=== PATIENT | female | born 1970 | race Caucasian/White ===

== ENCOUNTER 2021-03-20 01:44 | Emergency (ER) | payer BC, OTHER ==
[~2021-03-20] VITALS: Ht 170.2 cm; Wt 63.5 kg
--- NOTE | 2021-03-20 01:53 | NUR ---
Pt here for cat bite to L hand that happened this AM. Hand is swollen and warm to the touch. Dr. Molina at bedside for mse.
[2021-03-20] MEDS ORDERED: PIPERACILLIN SODIUM/TAZOBACTAM 3.375 G in IV DEXTROSE 5% 50 ML IV ONE (02:00)
[2021-03-20] MEDS ORDERED: TDAP DIPH,PERTUSS,TET VAC/PF 0.5 ML DISP.SYRIN IM ONE ×2 (02:15→02:23)
[2021-03-20] MEDS ORDERED: PIPERACILLIN/TAZOBACTAM/D5W 50 ML IV ONE (02:23)
[2021-03-20] MEDS ORDERED: IBUPROFEN 600 MG TABLET PO ONE (02:30)
[2021-03-20] MEDS ORDERED: OXYC-128 PO (02:32)
[2021-03-20] MEDS ORDERED: AMOX-430 PO (02:32)
[2021-03-20] MEDS ORDERED: IBUPROFEN 600 MG TABLET ONE (02:33)
--- NOTE | 2021-03-20 03:46 | NUR ---
Patient discharged to home in stable condition. Written and verbal after care instructions given. Patient verbalizes understanding of instructions. Stressed follow up or return to ER for worsening s/s. IV removed. Pt. walks with steady gait. No signs of distress. Vss. All belongings taken.
[2021-03-20 03:47] VITALS: BP 129/72
== END 2021-03-20 03:48 | disposition home or self-care (01) ==
LOC: ER 01:47
DX: L03.113 Cellulitis of right upper limb (principal); S61.431A Puncture wound without foreign body of right hand, initial encounter; W55.01XA Bitten by cat, initial encounter; Y93.89 Activity, other specified; Y92.019 Unspecified place in single-family (private) house as the place of occurrence of the external cause; Z88.1 Allergy status to other antibiotic agents; K51.90 Ulcerative colitis, unspecified, without complications
CPT/HCPCS: 87070; 90471; 90715; 96365; 99284; J2543; A4663

== ENCOUNTER 2021-03-20 23:48 | Emergency (ER) | payer BC, OTHER ==
[~2021-03-20] VITALS: Ht 170.2 cm; Wt 63.5 kg
[~2021-03-20 23:48] MED LIST: AMOX-430 PO; OXYC-128 PO
[2021-03-21] MEDS ORDERED: CLINDAMYCIN PHOSPHATE IV 600 MG in IV DEXTROSE 5% 100 ML IV ONE (00:45)
[2021-03-21] MEDS ORDERED: ONDANSETRON 4 MG/2 ML VIAL IV ONE ×2 (00:45→02:15)
[2021-03-21] MEDS ORDERED: HYDROMORPHONE 1 MG/1 ML DISP.SYRIN IV ONE ×3 (00:45→01:45)
[2021-03-21] MEDS ORDERED: CLINDAMYCIN PHOSPHATE 600 MG/4 ML VIAL ONE (00:47)
[2021-03-21] MEDS ORDERED: HYDROMORPHONE 2 MG/1 ML DISP.SYRIN ONE ×3 (00:48→01:48)
[2021-03-21] MEDS ORDERED: ONDANSETRON 4 MG/2 ML VIAL ONE ×2 (00:48→02:14)
--- NOTE | 2021-03-21 01:25 | NUR ---
Patient c/o of pain after administration of Dilaudid, MD Molina made aware. New orders pending.
[2021-03-21 02:20] VITALS: BP 110/62
--- NOTE | 2021-03-21 02:35 | NUR ---
Patient discharged to home in stable condition. Written and verbal after care instructions given. Patient verbalizes understanding of instructions. Stressed follow up or return to ER for worsening s/s. Patient wheelchaired to car of friend, advised to not drive. IV removed, V/S stable, and left with all personal belongings.
== END 2021-03-21 02:20 | disposition home or self-care (01) ==
LOC: ER 23:50
DX: L03.114 Cellulitis of left upper limb (principal); S61.432D Puncture wound without foreign body of left hand, subsequent encounter; W55.01XD Bitten by cat, subsequent encounter
CPT/HCPCS: 96365; 96375; 96376; 99284; J1170 ×3; J2405; J3490; J7060